=== PATIENT | male | born 1985 | race Caucasian/White ===

== ENCOUNTER 2017-06-27 21:34 | Inpatient (IN) | payer BC ==
--- NOTE | 2017-06-27 22:16 | ED ---
Psych HPI - General Chief Complaint: Psychiatric Symptoms Stated Complaint: petition Time Seen by Provider: 06/27/17 21:37 Source: patient, police Mode of arrival: ambulatory - History of Present Illness Initial Comments: This patient is a 31-year-old man brought in by [facility] department to have Court ordered evaluation. The patient relates that he believes his has arranged this. The patient states he had a similar episode earlier this year in which his [id number] had petitioned him and he was evaluated in the hospital for a number of days. The patient states that since that time he has not had suicidal ideation. Patient denies homicidal ideation. MD Complaint: other -: unknown History of same: Yes Improves With: none Worsens With: none Associated Symptoms: denies other symptoms - Related Data Home Medications Medication Instructions Recorded Confirmed No Known Home Medications [No 06/27/17 06/27/17 Known Home Medications] Allergies Allergy/AdvReac Type Severity Reaction Status Date / Time olanzapine [From Zyprexa] AdvReac Dyspnea Verified 06/27/17 22:10 Review of Systems ROS Statement: Those systems with pertinent positive or pertinent negative responses have been documented in the HPI. ROS Other: All systems not noted in ROS Statement are negative. Respiratory: Denies: cough, dyspnea Cardiovascular: Denies: chest pain Gastrointestinal: Denies: abdominal pain, vomiting Musculoskeletal: Denies: back pain Skin: Denies: rash Neurological: Denies: headache Psychiatric: Denies: auditory hallucinations, visual hallucinations, homicidal thoughts, suicidal thoughts Past Medical History Past Medical History: Hypertension History of Any Multi-Drug Resistant Organisms: None Reported Past Surgical History: No Surgical Hx Reported Past Psychological History: ADD/ADHD, Anxiety Smoking Status: Current every day smoker Past Alcohol Use History: None Reported Past Drug Use History: Marijuana General Exam Limitations: no limitations General appearance: alert, in no apparent distress Head exam: Present: atraumatic, normocephalic Eye exam: Present: normal appearance Respiratory exam: Present: normal lung sounds bilaterally. Absent: respiratory distress, wheezes, rales, rhonchi, stridor Cardiovascular Exam: Present: regular rate, normal rhythm, normal heart sounds. Absent: systolic murmur, diastolic murmur, rubs, gallop GI/Abdominal exam: Present: soft. Absent: distended, tenderness, guarding, rebound, rigid Neurological exam: Present: alert, normal gait Psychiatric exam: Present: normal affect. Absent: depressed, agitated, anxious , flat affect, manic, homicidal ideation, suicidal ideation Skin exam: Present: warm, dry, intact, normal color. Absent: rash Course Vital Signs 06/27/17 21:37 Temperature 100.2 F H Pulse Rate 115 H Respiratory 18 Rate Blood Pressure 155/96 O2 Sat by Pulse 96 Oximetry Medical Decision Making - Medical Decision Making This patient is a 31-year-old man brought in with Court order that the patient have psychiatrist evaluation and therefore after the behavioral health evaluation he is admitted for the psychiatrist's evaluation - Lab Data Lab Results 06/27/17 Range/Units 22:53 Urine Opiates Screen Not Detected (NotDetected) Ur Oxycodone Screen Not Detected (NotDetected) Urine Methadone Screen Not Detected (NotDetected) Ur Propoxyphene Screen Not Detected (NotDetected) Ur Barbiturates Screen Not Detected (NotDetected) U Tricyclic Antidepress Not Detected (NotDetected) Ur Phencyclidine Scrn Not Detected (NotDetected) Ur Amphetamines Screen Not Detected (NotDetected) U Methamphetamines Scrn Not Detected (NotDetected) U Benzodiazepines Scrn Not Detected (NotDetected) Urine Cocaine Screen Not Detected (NotDetected) U Marijuana (THC) Screen Detected H (NotDetected) Disposition Clinical Impression: Patient needs psychiatric hold for evaluation Disposition: TRANSFER TO PSYCH HOSP/UNIT Condition: Undetermined
[2017-06-28 00:26] VITALS: RESP 16
[2017-06-28] MEDS ORDERED: MAGNESIUM HYDROXIDE 2,400 MG/10 ML CUP PO PRN (00:58)
[2017-06-28] MEDS ORDERED: LORazepam 1 MG TAB PO PRN (00:58)
[2017-06-28] MEDS ORDERED: ACETAMINOPHEN TAB 325 MG TAB PO PRN (00:58)
[2017-06-28] MEDS ORDERED: ZIPRASIDONE 20 MG VIAL IM PRN (00:58)
[2017-06-28] MEDS ORDERED: MAG HYDROX/AL HYDROX/SIMETH 30 ML CUP PO PRN (00:58)
[2017-06-28] MEDS ORDERED: LORazepam 2 MG/ML INJ IM PRN (01:02)
[2017-06-28 01:22] VITALS: BMI 26.8
[2017-06-28] MEDS: NICOTINE POLACRILEX 2 MG GUM BUCCAL PRN ×2 (09:00→17:56)
--- NOTE | 2017-06-28 15:07 | CONS ---
CONSULTATION DATE OF CONSULTATION: 06/28/2017 REASON FOR CONSULTATION: Medical management requested by Dr. Castillo. CONSULTATION: This is a 31-year-old patient of Dr. Hanson. He has got a history of hypertension, ADHD. Patient is being admitted filing a complaint by the patient's to the side door man that the patient stopped going to work the last 3 weeks and threatening to kill her if he stays home. If he goes to work, he will kill people up there. He has been punching the tobias. Patient also stopped taking his blood pressure medication he tells me 2 weeks ago, he thinks he can control it otherwise and maybe his ADHD medications are contributing to the blood pressure. Patient otherwise is rather calm during the interview. He does tell me the left the kids at the house 2 weeks ago and he is somewhat worried about his kids as he has he not seen his children, 2 years and 6 months of age. Denies any change in bowel movements. No abdominal pain. No chest pain. Breathing is good. No new problem with his appetite. REVIEW OF SYSTEMS: CONSTITUTIONAL: None. HEENT: None. RESPIRATORY: None. CARDIOVASCULAR: None. GASTROINTESTINAL: None. GENITOURINARY: None. MUSCULOSKELETAL: None. DERMATOLOGICAL: None. HEMATOLOGICAL: None. LYMPHATIC: None. PSYCHIATRY: Some anxiety, depression. NEUROLOGICAL: None. PAST HISTORY: Hypertension, ADHD. PAST SURGICAL HISTORY: None. SOCIAL HISTORY: Patient currently on disability. Does marijuana about a quarter a month. Smokes less than a pack a day. Denies need of any other recreational use. FAMILY HISTORY: Reviewed, noncontributory to presentation. HOME MEDICATIONS: None. ALLERGIES: ZYPREXA. PHYSICAL EXAMINATION: Temperature 98.8, pulse 90, respirations 16, blood pressure 145/90, pulse ox 98%. GENERAL APPEARANCE: Sitting up, slightly anxious appearing. EYES: Pupils equal, conjunctivae normal. HEENT: Oral cavity normal. NECK: JVD not raised. Mass not palpable. RESPIRATORY: Effort normal. Lungs are clear. CARDIOVASCULAR: Fist and second sounds are normal, no edema. ABDOMEN: Soft, nontender. Liver and spleen not palpable. LYMPHATIC: No lymph nodes palpable in neck or axillae. PSYCHIATRY: Alert and oriented x3. Mood and affect anxious-appearing. INVESTIGATIONS: Urine drug screen positive for marijuana. ASSESSMENT: 1. Chronic nicotine dependence. Patient is a cigarette smoker. 2. Recreational marijuana use. 3. Essential hypertension. Patient is currently off medications. Will keep a close eye on the blood pressure. 4. Attention deficit hyperactivity disorder. 5. More detailed psychiatry evaluation awaiting with psychiatrist. PLAN: Patient advised against smoking marijuana. Given Nicorette gum. script manager is involved. Thank you, Dr. Castillo. Thank you, Dr. Montero copy Dr. Hanson. MMODL / IJN: [id number] /
--- NOTE | 2017-06-28 22:40 | P.HP ---
Psychiatric H&P - . H&P Date: 06/28/17 History & Physical: Allergies Allergy/AdvReac Type Severity Reaction Status Date / Time olanzapine [From Zyprexa] AdvReac Dyspnea Verified 06/27/17 22:10 Vital Signs Temp 98.8 F 06/28/17 00:25 Pulse 86 06/28/17 01:06 Resp 16 06/28/17 01:06 BP 137/72 06/28/17 01:06 Pulse Ox 98 06/28/17 00:25 Intake & Output 06/27/17 06/28/17 06/28/17 18:59 06:59 18:59 Weight 100.045 kg Laboratory Last Values Urine Opiates Screen Not Detected (NotDetected) 06/27/17 22:53 Ur Oxycodone Screen Not Detected (NotDetected) 06/27/17 22:53 Urine Methadone Screen Not Detected (NotDetected) 06/27/17 22:53 Ur Propoxyphene Screen Not Detected (NotDetected) 06/27/17 22:53 Ur Barbiturates Screen Not Detected (NotDetected) 06/27/17 22:53 U Tricyclic Antidepress Not Detected (NotDetected) 06/27/17 22:53 Ur Phencyclidine Scrn Not Detected (NotDetected) 06/27/17 22:53 Ur Amphetamines Screen Not Detected (NotDetected) 06/27/17 22:53 U Methamphetamines Scrn Not Detected (NotDetected) 06/27/17 22:53 U Benzodiazepines Scrn Not Detected (NotDetected) 06/27/17 22:53 Urine Cocaine Screen Not Detected (NotDetected) 06/27/17 22:53 U Marijuana (THC) Screen Detected (NotDetected) H 06/27/17 22:53 06/28/17 16:14 IDENTIFYING DATA: Pt presented to ED under court order for admission pending court hearing and with recent PPO filed against him by his . HPI: According to documentation, patient was previously involuntarily hospitalized in March at [facility] in [place]. During his hospitalization he decided to sign a deferral waiving his right to trial and agreeing to be compliant with treatment. However, he states that he has been non-compliant with medications for the past month due to side effects. Therefore, a demand was filed and patient was picked up and brought to the hospital for inpatient treatment while awaiting trial. In addition, patient's has filed a PPO against him stating that he has made suicidal and homicidal threats in her presence. Upon evaluation today, pt states that he was hospitalized at the end of March after being petitioned by his . He reports that at that time he stopped sleeping for ~1 week and subsequently started experiencing hallucinations. States that he came home from work and stated to his that he was scared that there would be a nuclear attack because of Trump; had his go outside and look in the clara at which time he thought that he saw the clara fill with helicopters. He reports that since then he has not experienced any hallucinations. Additional symptoms experienced during this time included racing thoughts, increased self-esteem, increased energy, distractibility, fast driving and spinning tires, innovative ideas that he tried to patent and send to the government. He does not report any current manic symptoms or any since above described episode. Patient denies thoughts of suicide and homicide. States that statements were made during arguments with his and that he told her "I would do anything it takes to see my kids "; however, reports that he did not intend for that to mean he would hurt anyone or himself. He states that his left him and took the kids 2 weeks ago. He has been sleeping but his sleep schedule is disjointed and sleeping during the day but up at night. His appetite is fair, eating "a little bit whenever I can". In regards to current racing thoughts, he states that "my mind always works really fast". He does not appear to be hyper elated or energetic. Concentration is fair as he is able to follow a conversation with this provider. His main concern at this time is that he feels he never truly dealt with the of his father. Patient's father committed suicide 6 years ago and patient is the one that found him with a gunshot wound to his head. He states that he just started to express his emotions regarding the loss of his father this year and feels that others were not able to deal with that. Since his father's , pt has noticed that he is often on guard, "if I go to a restaurant I prefer a eldridge" as he has to always observe his surroundings. States that he is hyper aware. Does not feel he is easily startled. Did experience nightmares every night for 3-4 years after his . Does have flashbacks. Also avoids some places or tasks that remind him of his dad. Has displayed some anger outbursts, more so early on after dad's . He reports that it is hard for him to trust others and has difficulty expressing emotions. PAST PSYCHIATRIC HISTORY: Previous hospitalization in [facility] this year. No other psychiatric hospitalizations reported. No past suicide attempts. Previous psychotropic medications include the following - Ativan ( small dose worked well), Adderall (DC'd due to increased anxiety and agitation) , Strattera, Abilify (uncontrolled muscle movements), Depakote (friend's prescribed medication that pt felt was helpful but cried more while on it), Zoloft (weight gain), Wellbutrin, Rumson, Risperdal, Zyprexa (sedation) PMH: none MEDICATIONS: Home Medications Medication Instructions Recorded Confirmed No Known Home Medications [No 06/27/17 06/28/17 Known Home Medications] CHEMICAL DEPENDENCY HISTORY: Previous heavy alcohol use. Currently denies consumption of alcohol and has not had heavy use in the past 2 years. Does smoke MJ "occasionally". Denies use of any other illicit substances. Does smoke less than 1ppd of cigarettes. FAMILY PSYCHIATRIC HISTORY: Father committed suicide 6 years ago. SOCIAL HISTORY: Pt born in [place] and moved to [place] at 6yo. Raised with both parents, 1 brother and 1 sister in household. Describes childhood as "alright" as parents split up 3 times for 6mo - 1yr each time. Had a strong relationship with his father and describes him as his bestfriend. He graduated from [employer] and was 1 semester away from obtaining an associates degree in engineering. Currently works at [employer]. He has been for 3 years. left him 2 weeks ago and he is currently living alone. He has a 2yo son and 6mo daughter. did have a miscarriage shortly after his father's 6 yrs ago. Also, pt received a DUI in 2010. Did attend AA meetings but stopped going after getting his license back so feels this a support system that has been lost. No history. Identifies as a [employer] and feels his stephanie is a supportive factor in his life. MENTAL STATUS EXAM: Pt is a 31yo male who is well-groomed and in NAD. He has good eye contact. Speech is spontaneous with normal rate and volume. Mood is euthymic and affect mostly appropriate but does become on the verge of tears when discussing his father's . Denies SI, HI and AVH. Thought process is linear and goal-directed. Memory is grossly intact. AAO x 3. Judgment and Insight is fair. STRENGTHS/WEAKNESSES: fair insight, non-disruptive behavior, children as his protective factor/poor support system, difficulty dealing with father's suicide , marital stressors INTELLECTUAL FUNCTIONING: average ASSESSMENT: 1. Bipolar I DO, MRE manic 2. PTSD PLAN: admit patient to 3 [facility] for further evaluation and treatment as deemed necessary. Awaiting medication list from previous hospitalization and records for further information regarding patient's initial presenting symptoms related to current court order. Will hold off on initiating psychotropic medications at this time until further information is gathered. According to Ximena, traveling sales representative from the court, patient's deferral expires tomorrow and his hearing is scheduled for this date. However, there is some concern that the psychiatrist who initially filed the second certification will not be available for court tomorrow and an adjournment may need to be filed. Pt placed on routine precautions during hospitalizations and will be monitored closely for safety. He will be encouraged to attend group activities on the unit. SW to aide in obtaining collateral information per pt consent.
[2017-06-29 07:10] VITALS: BP 153/82; PULSE 77; TEMP 97.5
[2017-06-29] MEDS: NICOTINE POLACRILEX 2 MG GUM BUCCAL PRN (08:54)
[2017-06-29 10:00] LABS: Basophils % (A) 0 %; CH 29.5; CHCM 33.1; Eosinophils # (A) 0.1 k/uL (0-0.7); Eosinophils % (A) 1 %; HCT 47.3 % (39.0-53.0); HDW 2.33; HGB 15.5 gm/dL (13.0-17.5); Luc % (Auto) 2; Lymphocytes # (A) 1.9 k/uL (1.0-4.8); Lymphocytes % (A) 23 %; MCH 29.3 pg (25.0-35.0); MCHC 32.8 g/dL (31.0-37.0); MCV 89.5 fL (80.0-100.0); Mean Platelet Volume 7.5; Monocytes # (A) 0.6 k/uL (0-1.0); Monocytes % (A) 7 %; Neutrophils # (A) 5.5 k/uL (1.3-7.7); Neutrophils % (A) 67 %; RBC 5.29 m/uL (4.30-5.90); RDW 12.2 % (11.5-15.5); WBC 8.3 k/uL (3.8-10.6); WBC (Perox) 7.93
[2017-06-29 10:19] LABS: ALT 48 U/L (21-72); AST 38 U/L (17-59); Alkaline Phosphatase 60 U/L (38-126); Anion Gap 9 mmol/L; Blood Urea Nitrogen 14 mg/dL (9-20); Calcium 10.2 mg/dL (8.4-10.2); Carbon Dioxide 29 mmol/L (22-30); Chloride 103 mmol/L (98-107); Cholesterol 178 mg/dL (<200); Glucose 89 mg/dL (74-99); HDL Cholesterol 56 mg/dL (40-60); Non-African American GFR(MDRD) >60 (>60 ml/min/1.73 sqM); Potassium 4.3 mmol/L (3.5-5.1); Sodium 141 mmol/L (137-145); Total Bilirubin 0.8 mg/dL (0.2-1.3); Total Protein 7.6 g/dL (6.3-8.2)
--- NOTE | 2017-06-29 15:47 | P.PN ---
Progress Note - Text Progress Note Date: 06/29/17 Pt is a 31yo CM admitted on 06/28/[address] and with recent PPO filed against him by his . Last 24hrs: Patient interviewed this morning during rounds. He states that his mood continues to be "good". Slept well last night. Has been attending groups on the unit and cooperative with staff. His appetite is fair. Denies SI and HI. Also no reported hallucinations and not observed to be responding to internal stimuli on the unit. Presented to court today for scheduled hearing and consented to a 60/90 order. MSE: Pt is a 31yo male who is well-groomed and in NAD. He has good eye contact. Speech is spontaneous with normal rate and volume. Mood is "good" and affect appropriate. Denies SI, HI and AVH. Thought process is linear and goal-directed. Memory is grossly intact. AAO x 3. Judgment and Insight is fair. ASSESSMENT: 1. PTSD 2. Bipolar I DO, MRE manic PLAN: Will discharge patient today as he has not displayed any combative or disruptive behaviors. Has continued to adamantly deny SI and HI. No acute psychotic symptoms. According to history reported by patient, it does seem that he did experience a manic episode around 2 months ago and would benefit from further evaluation and medication management on an outpatient basis. Also with multiple symptoms of PTSD following his father's suicide and would benefit from cognitive behavioral therapy for further treatment of this.
--- NOTE | 2017-06-30 00:09 | P.DS ---
Providers Date of admission: 06/28/17 00:13 Expected date of discharge: 06/29/17 Attending physician: Rehana Castillo, DO Consults: 06/28/17 00:58 Consult Physician Routine Consulting Provider: Duglas Ballesteros Consult Reason/Comments: H&P and medical follow up Do you want consulting provider notified?: Yes, Notify in am Primary care physician: Jackson Hanson - Discharge Diagnosis(es) (1) Bipolar 1 disorder Status: Acute (2) Post traumatic stress disorder (PTSD) Status: Acute Hospital Course: Patient presented to [facility] ED with a PPO initiated by his with allegations that patient stated suicidal and homicidal thoughts to her. Upon admission it was discovered that patient was issued a demand and a spanish moss picker order was filed, which is why he was brought to the ED. There was some confusion as it was also stated by patient and his mother that he had been compliant with his outpatient appointments and that his last appointment had been cancelled due to insurance issues. However, pt did report that he was non- compliant with prescribed medication for the past month due to side effects experienced. For example, pt reported experiencing involuntary muscle movements with Abilify and excessive sedation with Zyprexa. He was admitted to [facility] in [place] at the end of March after being petitioned by his . He signed a deferral and waived his trial at that time. Records were requested from his hospital stay for further review of his previous medication regimen, evaluation and treatment. However, the records were never sent to us. Patient reported that upon initial presentation to [facility], he displayed symptoms in congruence with a manic episode. On evaluation, patient did not display any current signs of vikas. He also denied suicidal and homicidal thoughts. Pt did have a couple depressive symptoms of decreased appetite and poor sleep patterns. He reported that his left him 2 weeks ago and took their kids, which has effected his mood some. In addition, patient reported PTSD symptoms that began 6 years ago after finding his father s /p self-inflicted gunshot wound to the head. Discussed the options of psychotropic medications but did not initiate therapy while awaiting for ancillary information regarding previous treatment. Also, patient was not acutely psychotic, actively manic, significantly depressed or actively suicidal/ homicidal and therefore did not require emergent medications at that time. He remained calm and cooperative throughout his stay on the unit and regularly attended group activities. On 06/29/[address] hearing and decided to concede to a 60/90 order. He was discharged and he presented in stable condition and without active symptoms as stated above. It was recommended that patient follow-up with outpatient services for further evaluation and treatment of what appears to be Bipolar Disorder and PTSD. In my opinion patient did not meet criteria for continued inpatient hospitalization and could follow-up on an outpatient basis for further treatment. Therefore, he was discharged in stable condition. SW also spoke with patient's mother who corroborated patient's account of events leading up to hospitalization and feelings that he was safe to return home. Patient Condition at Discharge: Good Plan - Discharge Summary New Discharge Prescriptions: No Action No Known Home Medications [No Known Home Medications] Discharge Medication List No Known Home Medications [No Known Home Medications] 06/27/17 [History] Follow up Appointment(s)/Referral(s): [facility] [Outside] - 07/04/17 1:00 pm (07/04/17 at 1:00 pm with Stefanie) Jackson Hanson MD [Primary Care Provider] - As Needed Patient Instructions/Handouts: Bipolar Disorder (DC), Post Traumatic Stress Disorder (DC) Activity/Diet/Wound Care/Special Instructions: per dr ballesteros, pt is to have an appt made with Dr Schuler's office made prior to d/c. Pt sees Dr Schuler in [facility].--Pt. is no longer seeing Dr. Hanson. Appointment with Dr. Craig July 26 at 945 AM at [address] [place] [phone] Please attend all outpatient follow up appointments. Diet as tolerated. No alcohol or street drugs. Please call the crisis line at , 911, or if bring yourself to the ER if any symptoms return Discharge Disposition: HOME SELF-CARE
== END 2017-06-29 18:09 | disposition home or self-care (01) | DRG 885 ==
LOC: EC 21:34 → 3MHU 06-28 00:13
PROVIDERS: ADMIT Psychiatry & Neurology Psychiatry; ATTEND Psychiatry & Neurology Psychiatry
DX: F31.9 Bipolar disorder, unspecified (principal); I10 Essential (primary) hypertension; F17.210 Nicotine dependence, cigarettes, uncomplicated; F12.90 Cannabis use, unspecified, uncomplicated; F43.10 Post-traumatic stress disorder, unspecified; F90.9 Attention-deficit hyperactivity disorder, unspecified type; F41.9 Anxiety disorder, unspecified; Z91.14 Patient's other noncompliance with medication regimen; Z88.8 Allergy status to other drugs, medicaments and biological substances; Z81.8 Family history of other mental and behavioral disorders
CPT/HCPCS: 80053; 80061; 80306; 82075; 83036; 84443; 85025; 99285

== ENCOUNTER 2024-05-07 12:04 | Emergency (ER) | payer BC ==
--- NOTE | 2024-05-07 12:25 | ED ---
Head Injury HPI - General Chief complaint: Head Injury Stated complaint: Head injury Time Seen by Provider: 05/07/24 12:09 Source: patient, RN notes reviewed Mode of arrival: ambulatory Limitations: no limitations - History of Present Illness Initial comments: 38-year-old male presents emergency department complaint of head injury Tuesday. Patient has syncopal episode and was seen in outside ER facility. Patient did not have a CAT scan at that time. He did have sutures placed in his scalp. Patient states he continues to feel fatigued, having intermittent headaches and dizziness. Patient denies any chest pain or palpitations no other additional syncopal episodes. Patient denies any focal weakness no blood thinners. - Related Data Previous Rx's Medication Instructions Recorded FLUoxetine HCL [PROzac] 20 mg PO DAILY #30 cap 09/05/17 Losartan [Cozaar] 50 mg PO DAILY tab 09/05/17 Prazosin [Minipress] 2 mg PO BID #120 cap 09/05/17 Allergies/Adverse reactions: Allergies Allergy/AdvReac Type Severity Reaction Status Date / Time aripiprazole [From Abilify] Allergy Hallucinati Verified 08/30/17 16:41 ons olanzapine [From Zyprexa] AdvReac Dyspnea Verified 09/01/17 15:25 Review of Systems ROS Statement: Those systems with pertinent positive or pertinent negative responses have been documented in the HPI. ROS Other: All systems not noted in ROS Statement are negative. Past Medical History Past Medical History: Hypertension Additional Past Medical History / Comment(s): stated lost his prescription for bp meds. History of Any Multi-Drug Resistant Organisms: None Reported Past Surgical History: No Surgical Hx Reported Past Anesthesia/Blood Transfusion Reactions: No Reported Reaction Past Psychological History: ADD/ADHD, Anxiety, Depression, PTSD Past Alcohol Use History: None Reported Past Drug Use History: Marijuana - Past Family History Father Additional Family Medical History / Comment(s): committed suicide General Exam Limitations: no limitations General appearance: alert, in no apparent distress Head exam: Present: atraumatic, normocephalic. Absent: normal inspection (Scalp lacerations with sutures in place) Eye exam: Present: normal appearance, PERRL, EOMI. Absent: scleral icterus, conjunctival injection, periorbital swelling ENT exam: Present: normal exam, mucous membranes moist Neck exam: Present: normal inspection, full ROM. Absent: tenderness, meningismus, lymphadenopathy Respiratory exam: Present: normal lung sounds bilaterally. Absent: respiratory distress, wheezes, rales, rhonchi, stridor Cardiovascular Exam: Present: regular rate, normal rhythm, normal heart sounds. Absent: systolic murmur, diastolic murmur, rubs, gallop, clicks Neurological exam: Present: alert, oriented X3, CN II-XII intact, reflexes normal Skin exam: Present: warm, dry, intact, normal color. Absent: rash Course Vital Signs 05/07/24 05/07/24 12:06 14:18 Temperature 98.1 F 98.2 F Pulse Rate 63 50 L Respiratory 16 18 Rate Blood Pressure 153/94 158/94 O2 Sat by Pulse 98 99 Oximetry Medical Decision Making - Medical Decision Making Was pt. sent in by a medical professional or institution (, PA, HOUSE DETECTIVE, urgent care, hospital, or long-term...) When possible be specific @ -No Did you speak to anyone other than the patient for history (EMS, parent, family, police, friend...)? What history was obtained from this source @ -No Did you review nursing and triage notes (agree or disagree)? Why? @ -I reviewed and agree with nursing and triage notes Were old charts reviewed (outside hosp., previous admission, EMS record, old EKG, old radiological studies, urgent care reports/EKG's, long-term records)? Report findings @ -No old charts were reviewed Differential Diagnosis (chest pain, altered mental status, abdominal pain women, abdominal pain men, vaginal bleeding, weakness, fever, dyspnea, syncope, headache, dizziness, GI bleed, back pain, seizure, CVA, palpatations, mental health, musculoskeletal)? @ -Concussion, closed head injury, intracranial hemorrhage EKG interpreted by me (3pts min.). @ -None X-rays interpreted by me (1pt min.). @ -None done CT interpreted by me (1pt min.). @ -CT brain showing no acute fracture, intracranial hemorrhage, mass effect or acute malady U/S interpreted by me (1pt. min.). @ -None done What testing was considered but not performed or refused? (CT, X-rays, U/S, labs)? Why? @ -None What meds were considered but not given or refused? Why? @ -None Did you discuss the management of the patient with other professionals (professionals i.e. , PA, HOUSE DETECTIVE, lab, RT, psych nurse, social service worker, chief lending officer, teacher, commercial escrow officer, renal case manager)? Give summary @ -No Was smoking cessation discussed for >3mins.? @ -No Was critical care preformed (if so, how long)? @ -No Were there social determinants of health that impacted care today? How? (Homelessness, low income, unemployed, alcoholism, drug addiction, transportation, low edu. Level, literacy, decrease access to med. care, shelter, rehab)? @ -No Was there de-escalation of care discussed even if they declined (Discuss DNR or withdrawal of care, Hospice)? DNR status @ -No What co-morbidities impacted this encounter? (DM, HTN, Smoking, COPD, CAD, Cancer, CVA, ARF, Chemo, Hep., AIDS, mental health diagnosis, sleep apnea, morbid obesity)? @ -None Was patient admitted / discharged? Hospital course, mention meds given and route, prescriptions, significant lab abnormalities, going to OR and other pertinent info. @ -Discharge patient CT is unremarkable patient will follow-up PCP will have recheck of the wound and suture removal. CT brain was obtained given persistent symptoms, change in mentation and prior severe mechanism of injury Undiagnosed new problem with uncertain prognosis? @ -No Drug Therapy requiring intensive monitoring for toxicity (Heparin, Nitro, Insulin, Cardizem)? @ -No Were any procedures done? @ -No Diagnosis/symptom? @ -Close head injury, concussion Acute, or Chronic, or Acute on Chronic? @ -Acute Uncomplicated (without systemic symptoms) or Complicated (systemic symptoms)? @ -Complicated Side effects of treatment? @ -No Exacerbation, Progression, or Severe Exacerbation? @ -No Poses a threat to life or bodily function? How? (Chest pain, [place], CA, pneumonia, PE, COPD, DKA, ARF, appy, cholecystitis, CVA, Diverticulitis, Homicidal, Suicidal, threat to staff... and all critical care pts) @ -No Disposition Clinical Impression: Scalp laceration, Head injury Disposition: HOME SELF-CARE Condition: Stable Instructions (If sedation given, give patient instructions): Concussion (ED) Additional Instructions: Please return to the Emergency Department if symptoms worsen or any other concerns. Is patient prescribed a controlled substance at d/c from ED?: No Referrals: Marky Garcia MD [Primary Care Provider] - 1-2 days Time of Disposition: 14:11
--- NOTE | 2024-05-07 13:38 | CT ---
EXAMINATION TYPE: CT brain wo con CT DLP: 1168.4 mGycm, Automated exposure control for dose reduction was used. DATE OF EXAM: 05/07/2024 1:27 PM COMPARISON: None. CLINICAL INDICATION:Male, 38 years old with history of trauma, RT side head lac from syncope episode x2 days ago. headache since then TECHNIQUE: Brain: Multiple axial CT images of the brain were obtained without IV contrast. . Coronal and sagitta l reformats reviewed. FINDINGS: Brain: Extra-axial spaces: No abnormal extra-axial fluid collections. Ventricular system: Within normal limits Cerebral parenchyma: No acute intraparenchymal hemorrhage or mass effect. The castle-white junction is well differentiated. Cerebellum: Unremarkable. Mass effect: No evidence of midline shift. Intracranial vasculature: unremarkable Soft tissues: Normal. Calvarium/osseous structures: No depressed skull fracture. Paranasal sinuses and mastoid air cells: Clear Visualized orbits: Orbital contents are intact. IMPRESSION: No acute intracranial process. [facility], , 05/07/2024 1:36 PM
[2024-05-07 14:20] VITALS: BP 158/94; PULSE 50; RESP 18; TEMP 98.2
== END 2024-05-07 14:20 | disposition home or self-care (01) ==
LOC: EC 12:04
DX: S09.90XA Unspecified injury of head, initial encounter
CPT/HCPCS: 70450; 99283

== ENCOUNTER → 2024-08-31 | Outpatient (CLI) | payer BC ==
--- NOTE | 2024-08-31 10:37 | US ---
EXAMINATION TYPE: US scrotum with doppler. DATE OF EXAM: 08/31/2024 COMPARISON: NONE CLINICAL INDICATION: Male, 39 years old with history of N50.89 OTHER SPECIFIED DISORDERS OF THE MALE GENIT; Patient states feeling a lump in left teste x 1 year. Patient thinks it has increased in size . TECHNIQUE: Grayscale, color Doppler and spectral Doppler imaging of the scrotum. FINDINGS: EXAM MEASUREMENTS: TESTICLES: Right Testicle: 4.4 x 3.9 x 2.8 cm Left Testicle: 3.3 x 3.5 x 2.4 cm EPIDIDYMIS HEAD: Right Epididymis: 0.8 x 1.0 x 1.0 cm Left Epididymis: 0.7 x 1.0 x 0.9 cm Doppler performed to assess for testicular vascularity; good bilateral color flow and spectral wavefo jamey are seen. There is no evidence of testicular torsion. Presence of hydroceles: Small left Presence of varicoceles: Left At area of left palpable, varicoceles seen. IMPRESSION: 1. Left hemiscrotum varicoceles. 2. Normal color flow within the bilateral testicles. [facility], , 08/31/2024 10:35 AM
== END | disposition home or self-care (01) ==
LOC: RADUSWWP 08:30
PROVIDERS: ATTEND Family Medicine
DX: N50.89 Other specified disorders of the male genital organs (principal); I86.1 Scrotal varices
CPT/HCPCS: 76870; 93975